=== PATIENT | male | born 1980 | race African-American/Black ===

== ENCOUNTER 2018-06-25 07:45 | Emergency (ER) | payer SELFPAY ==
[2018-06-25 07:46] VITALS: BP 164/105; PULSE 63; RESP 12; TEMP 36.6; O2SAT 99; BMI 31.4
--- NOTE | 2018-06-25 08:13 | ED.VISSUMM ---
- ER Visit Summary Date of Service: 06/25/18 Chief Complaint: [Left eye pain and swelling] History of Present Illness: The patient is a 38 M [presents the emergency department with complaint of discomfort to his left eye. Patient states that last evening he started with just some mild discomfort in the left upper eyelid. Upon awakening this morning patient noted that he had swelling of the eyelid and some drainage from the lateral aspect of the eyelid. Patient states that he has a history of stye. He denies any trauma to his eye. He denies foreign body sensation. He denies visual changes. He denies eye pain with movement of the eyes. He denies fevers.] Physical Examination: [HEENT-PERRLA, EOMI. Cranial nerves II through XII grossly intact. TMs clear. Mucous membranes moist. No adenopathy. Left eye-patient has edema of the upper lid with some faint erythema noted. There is some clear drainage noted from the lateral canthus that appears to be emanating from the upper lid. Patient has painless extraocular muscle movement. No proptosis. There is no evidence for conjunctivitis. No discrete stye noted or eyelid abscess. Cardiovascular-regular rate and rhythm without murmur or ectopy Lungs-clear to auscultation, chest wall stable without crepitus or subcu emphysema Abdomen-normoactive bowel sounds, soft, nontender, no rebound or rigidity, no peritoneal signs. Extremities-intact ?4, normal range of motion, normal pulses, atraumatic] Test Results: [None indicated] Emergency Department Course and Treatment: [Patient was started on Keflex and gentamicin ophthalmic ointment.] Treatment Plan: [Keflex and gentamicin ophthalmic ointment and referral to ophthalmology] Disposition: [Discharged home in stable condition. Patient advised to return if worsening pain, fever, swelling, or condition should worsen anyway.] Impression: [Left upper eyelid blepharitis/cellulitis] This note was generated with [employer] dictation software. It may contain incorrect words, spelling, and punctuation that were not noted in review of the chart prior to signing ED Disposition - Plan for ED Patient: Chief Complaint: Eye Problem Referrals: Care Physician,No Primary [Primary Care Provider] -
--- NOTE | 2018-06-25 08:16 | ED.DCSUM_ITS ---
- ER Visit Summary Date of Service: 06/25/18 Chief Complaint: [Left eye pain and swelling] History of Present Illness: The patient is a 38 M [presents the emergency department with complaint of discomfort to his left eye. Patient states that last evening he started with just some mild discomfort in the left upper eyelid. Upon awakening this morning patient noted that he had swelling of the eyelid and some drainage from the lateral aspect of the eyelid. Patient states that he has a history of stye. He denies any trauma to his eye. He denies foreign body sensation. He denies visual changes. He denies eye pain with movement of the eyes. He denies fevers.] Physical Examination: [HEENT-PERRLA, EOMI. Cranial nerves II through XII grossly intact. TMs clear. Mucous membranes moist. No adenopathy. Left eye- patient has edema of the upper lid with some faint erythema noted. There is some clear drainage noted from the lateral canthus that appears to be emanating from the upper lid. Patient has painless extraocular muscle movement. No proptosis. There is no evidence for conjunctivitis. No discrete stye noted or eyelid abscess. Cardiovascular-regular rate and rhythm without murmur or ectopy Lungs-clear to auscultation, chest wall stable without crepitus or subcu emphysema Abdomen-normoactive bowel sounds, soft, nontender, no rebound or rigidity, no peritoneal signs. Extremities-intact ?4, normal range of motion, normal pulses, atraumatic] Test Results: [None indicated] Emergency Department Course and Treatment: [Patient was started on Keflex and gentamicin ophthalmic ointment.] Treatment Plan: [Keflex and gentamicin ophthalmic ointment and referral to ophthalmology] Disposition: [Discharged home in stable condition. Patient advised to return if worsening pain, fever, swelling, or condition should worsen anyway.] Impression: [Left upper eyelid blepharitis/cellulitis] This note was generated with [email or web address] dictation software. It may contain incorrect words, spelling, and punctuation that were not noted in review of the chart prior to signing ED Disposition - Plan for ED Patient: Chief Complaint: Eye Problem Referrals: Care Physician,No Primary [Primary Care Provider] -
--- NOTE | 2018-06-25 08:16 | ED.DEP ---
ED Disposition - Plan for ED Patient: Chief Complaint: Eye Problem Instructions: ED Inflammation Eyelid, ED Cellulitis Barbara Orbital Prescriptions: Cephalexin [Keflex] 500 mg PO Q6 #40 cap Referrals: Care Physician,No Primary [Primary Care Provider] - Brandee Ragsdale MD [STAFF PHYSICIAN] - 3-5 Days
[2018-06-25] MEDS: Erythromycin Base 1 OPTH.TUBE 1 APPLIC OPHTHALMIC (08:36)
[2018-06-25] MEDS: Cephalexin 250 MG Capsule 500 MG PO (08:37)
== END 2018-06-25 08:43 | disposition home or self-care (01) ==
LOC: ED 08:13
PROVIDERS: Emergency Provider Emergency Medicine
DX: H01.004 Unspecified blepharitis left upper eyelid (principal); H00.034 Abscess of left upper eyelid; Z72.0 Tobacco use
CPT/HCPCS: 99282

== ENCOUNTER 2021-05-11 16:22 | Emergency (ER) | payer MEDICAID, SELFPAY ==
[2021-05-11 16:22] VITALS: BP 161/105; PULSE 71; RESP 14; TEMP 36.9; O2SAT 98; BMI 32.8
--- NOTE | 2021-05-11 16:36 | CT_ITS ---
EXAM: CT HEAD WITHOUT INTRAVENOUS CONTRAST : 1980 CLINICAL INDICATION: facial droop TECHNIQUE: Multiple axial images were obtained of the head without intravenous contrast. This CT exam was performed using one or more of the following dose reduction techniques: automated exposure control, adjustment of the mA and/or kV according to patient size, and/or use of iterative reconstruction technique. This report was created using [employer] report generation technology. COMPARISON: None. FINDINGS: BRAIN AND EXTRA-AXIAL SPACES: Unremarkable. No intra- or extra-axial hemorrhage. No evidence of acute infarct. No intracranial mass or mass effect. There is preservation of the king/white matter interface. Posterior fossa structures are unremarkable. Ventricles are appropriate for age. No hydrocephalus. Basal cisterns are patent. BONES/JOINTS: Unremarkable. No discrete lytic or blastic abnormalities. SINUSES: There is near total opacification of the left sphenoid sinus. MASTOID AIR CELLS: Unremarkable. Clear. ORBITS: Visualized globes, extraocular muscles, optic nerves and retrobulbar fat appear unremarkable. CT/Brain/Head without Contrast IMPRESSION: 1. No acute intracranial abnormality. 2. Left sphenoid sinusitis. Individualized dose optimization techniques were used for this CT. at 1656 Reported and signed by: Iglesia Rouse MD Electronically Signed: Iglesia Rouse MD at 16:55 EDT Tel , Service support ,
[2021-05-11 16:40] VITALS: PULSE 66; RESP 15; O2SAT 98
--- NOTE | 2021-05-11 17:24 | EDS_ITS ---
HPI History of Present Illness Chief Complaint: Neuro S/Sx Narrative Narrative: Patient presenting for evaluation secondary to facial weakness. Patient states that at about 3 PM today he noticed that he was having right- sided facial weakness and was having difficulty with drinking through a straw. Does state that there was some mild tingling associated with this. He denies any visual changes, or numbness or weakness of the arms or legs. No gait instability or difficulty speaking. Never had any prior similar episodes in the past. Denies any facial rashes or ear pain. Patient does have an underlying history of hypertension, he has been on lisinopril over the course of maybe like last 6 months. Patient denies any other current symptoms. Review of systems otherwise negative. [facility] Medical History Essential (primary) hypertension Palpitations Paroxysmal atrial fibrillation Home Medications amoxicillin-pot clavulanate [Augmentin] 1 tab PO BID #28 tab 05/11/21 [Rx Last Taken Unknown] lisinopril [Zestril] 10 mg PO DAILY 05/11/21 [History Last Taken Unknown] prednisone 50 mg PO DAILY #7 tab 05/11/21 [Rx Last Taken Unknown] Allergy/AdvReac Type Severity Reaction Status Date / Time No Known Allergies Allergy Verified 05/11/21 16:24 Family History Father Diabetes Social History Smoking Status: Light Smoker (<10/day) ROS [facility] ED Constitutional Constitutional ED: Denies chills or fever(s) ENT ENT ED: Denies rhinorrhea Cardiovascular Cardiovascular: Denies chest pain Respiratory/Chest Respiratory/Chest: Denies cough or dyspnea Gastrointestinal Gastrointestinal: Denies abdominal pain, diarrhea, nausea or vomiting Genitourinary Genitourinary ED: Denies dysuria or hematuria Musculoskeletal Musculoskeletal: Denies back pain Integumentary Denies rash Neurologic Neurologic: Reports weakness Psychiatric Psychiatric: Denies depression Endocrine Endocrinology: Denies fatigue Allergic/Immunologic Allergic/Immunologic ED: Denies urticaria EXAM Physical Exam Const Vital Signs: 05/11/21 16:22 05/11/21 16:40 Temperature 98.5 F Temperature Source Temporal Pulse Rate 71 66 Respiratory Rate 14 15 Blood Pressure 161/105 H Blood Pressure Mean 123 Pulse Ox 98 98 Oxygen Delivery Method Room Air Room Air Positive well nourished and well developed General Appearance ED: well developed and NAD HEENT Reports moist mucous membranes Negative for trauma or tenderness Eyes EOMs intact bilaterally Neck no lymphadenopathy, supple and no JVD Chest Wall inspection of chest normal Resp normal respiratory effort and clear to auscultation bilaterally Cardio regular rate, regular rhythm, no murmurs and peripheral pulses 2+ throughout GI normal to inspection, nondistended, normoactive bowel sounds, non-tender and no masses Palpation: soft Back/Spine normal to inspection Extremity normal to inspection General Extremety ED: Negative for tenderness Neuro oriented x3 Neuro Narrative: NIH stroke scale is 1 secondary to very mild right-sided facial droop. The right-sided facial droop does not spare the patient's forehead. Sensorium / Orientation: alert Psych mental status grossly normal Skin no rashes or lesions noted MDM MDM MDM Narrative Medical decision making narrative: Patient presented secondary to an onset of right-sided facial droop. 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 Patient reported that yesterday he had a mild headache, so I did perform CT imaging of the brain which was found to be negative except for incidental sphenoid sinusitis. Patient does not have any evidence of facial rashes or zoster currently. I believe the patient can safely be discharged. Be sent home on a course of Augmentin for sphenoid sinusitis as well as prednisone for treatment of Camara's palsy. He has follow-up with his primary care physician on Sunday, he was recommended to keep that. Radiography Diagnostic Testing: Radiology Impression Brain CT 05/11/21 16:36 IMPRESSION: 1. No acute intracranial abnormality. 2. Left sphenoid sinusitis. Individualized dose optimization techniques were used for this CT. at 1656 Reported and signed by: Iglesia Rouse MD Electronically Signed: Iglesia Rouse MD at 16:55 EDT Tel , Service support , Discharge Plan Triage Chief Complaint: Neuro S/Sx ED Provider: Dqeuan Man Dx/Rx/DC Orders Clinical Impression: Camara's palsy, Sphenoid sinusitis Instructions: Camara's Palsy, ED Sinusitis (Antibiotic Treatment) Prescriptions: New amoxicillin-pot clavulanate [Augmentin] 875-125 mg tablet 1 tab PO BID Qty: 28 RF: 0 prednisone 50 mg tablet 50 mg PO DAILY Qty: 7 RF: 0 No Action lisinopril [Zestril] 10 mg tablet 10 mg PO DAILY RF: 0 Primary Care Provider: Jeffery Fonseca Referrals: Jeffery Fonseca MD [Primary Care Provider] - 05/13/21
[2021-05-11 17:37] VITALS: BP 163/95; PULSE 59; RESP 20; O2SAT 100
[2021-05-11 17:40] VITALS: BMI 11.3
== END 2021-05-11 17:40 | disposition home or self-care (01) ==
LOC: ED 16:52
PROVIDERS: Emergency Provider Emergency Medicine; PCP Family Medicine
DX: G51.0 Bell's palsy (principal); J32.3 Chronic sphenoidal sinusitis; I10 Essential (primary) hypertension; F17.200 Nicotine dependence, unspecified, uncomplicated; Z79.899 Other long term (current) drug therapy
CPT/HCPCS: 70450; 99282

== ENCOUNTER 2022-06-16 19:19 | Emergency (ER) | payer MEDICAID, SELFPAY ==
[2022-06-16 19:20] VITALS: BP 141/83; PULSE 77; RESP 16; TEMP 36.6; O2SAT 99; BMI 31.8
--- NOTE | 2022-06-16 19:34 | EDS_ITS ---
HPI History of Present Illness Chief Complaint: Nausea/Vomiting Detail of Chief Complaint: Nausea and vomiting x2 this afternoon Informant: patient and spouse/S.O. Onset/Context/Timing Onset: Today and Days Context: Sudden Onset Timing: Intermittent Quality: Nausea and vomiting Location: GI Current Severity: Mild Maximum Severity: Moderate Worsened by: gusling water Relieved by: Nothing Associated Symptoms Associated Symptoms: Dry mouth Narrative Narrative: Here forPatient is a 42-year-old male with history of hypertension on lisinopril who presents because of nausea and vomiting x2. He called his and stated he did not feel well. She instructed him not to drive. He drove home. He then developed cramps in his calves. She applied Aspercreme with no benefit. He presents now because my thinks I am dehydrated . He denies fever, chills night sweats. He denies headache. He denies ocular, visual auditory symptoms. He denies cardiac or respiratory symptoms. He denies diarrhea. He denies hematemesis. He denies urinary symptoms. Prior similar symptoms: No Recent Illness/Hospitalization: No PFSH [facility] Medical History Camara's palsy Essential (primary) hypertension Palpitations Paroxysmal atrial fibrillation Home Medications lisinopril 10 mg tablet (Zestril) 20 mg PO DAILY 05/11/21 [History Last Taken Unknown] meloxicam 7.5 mg tablet 7.5 mg PO DAILY 06/16/22 [History Last Taken Unknown] Allergy/AdvReac Type Severity Reaction Status Date / Time No Known Allergies Allergy Verified 06/16/22 19:24 Family History Father Diabetes Surgical History no surgical history no surgical history Social History (Updated 06/16/22 @ 19:[address] Thomas Bach MD) household members: spouse Smoking Status: Light Smoker (<10/day) alcohol intake: current alcohol intake frequency: a few times a week substance use type: marijuana ROS ROS ED Constitutional Constitutional ED: Denies chills, fever(s), subjective, sweats or weight loss Eyes Eyes: Denies blurry vision, change in vision or diplopia ENT ENT ED: Denies ear pain, rhinorrhea or sore throat Cardiovascular Cardiovascular: Denies chest pain, orthopnea, palpitations, paroxysmal nocturnal dyspnea or racing heartbeat Respiratory/Chest Respiratory/Chest: Denies cough, dyspnea, dyspnea on exertion, orthopnea, paroxysmal nocturnal dyspnea or sputum Gastrointestinal Gastrointestinal: Reports nausea and vomiting; Denies abdominal pain, constipation, diarrhea or melena Genitourinary Genitourinary ED: Denies dysuria, hematuria or urinary frequency Musculoskeletal Musculoskeletal: Denies arthralgias, back pain, myalgias or neck pain Integumentary Denies Abrasions or rash Neurologic Neurologic: Denies headache(s) or paresthesias Hematologic/Lymphatic Hematologic/Lymphatic: Denies systems reviewed and no addt'l complaints, except as documented, easy bleeding or easy bruising EXAM Physical Exam Const Vital Signs: 06/16/22 19:20 Temperature 98 F Temperature Source Temporal Pulse Rate 77 Respiratory Rate 16 Blood Pressure 141/83 H Blood Pressure Mean 102 Pulse Ox 99 Oxygen Delivery Method Room Air Positive well nourished, well developed and obese General Appearance ED: well developed; Negative for cyanotic, diaphoretic, NAD or pallor Nutritional Appearance: obese HEENT Reports dry mucous membranes HEENT Narrative: Head is atraumatic normocephalic. Ears normal. TMs normal. Nares patent. Uvula midline. No deviation tongue or protrusion. Posterior Prantal erythema or exudate. Mouth ED: Yes dry mucous membranes Mouth: dry mucous membranes Eyes PERRL and EOMs intact bilaterally General Eye ED: Negative for pale conjunctiva or scleral icterus Neck no lymphadenopathy, supple and no JVD Chest Wall inspection of chest normal and palpation of chest normal Resp normal respiratory effort and clear to auscultation bilaterally Cardio regular rate, regular rhythm, S1 normal heart sound, S2 normal heart sound and no murmurs GI normal to inspection, nondistended, normoactive bowel sounds, non-tender, non- distended and no masses; Negative for hepatosplenomegaly Back/Spine no CVA tenderness Extremity normal to inspection General Extremety ED: Negative for edema or tenderness General Extremity: Negative for edema Neuro oriented x3, CN's II-XII intact bilaterally and no sensory deficits noted Sensorium / Orientation: alert Motor Exam: strength 5/5 throughout Psych mental status grossly normal Skin no rashes or lesions noted, no wounds and skin turgor normal General Skin Exam: Negative for jaundice or pallor MDM MDM MDM Narrative Medical decision making narrative: Patient with nausea vomiting. Clinically dehydrated. Since he only vomited twice per literature laboratory studies are not indicated. IV was already established prior to me seeing the patient. Will administer 1 L of normal saline and p.o. challenge. Presently patient complains of no nausea. Patient passed p.o. challenge. He was reassessed at 2104. Discharge Plan Triage Chief Complaint: Nausea/Vomiting ED Provider: Thomas Bach Dx/Rx/DC Orders Clinical Impression: Nausea & vomiting, Dehydration, mild Instructions: ED Vomiting (Adult) Prescriptions: No Action lisinopril [Zestril] 10 mg tablet 20 mg PO DAILY meloxicam 7.5 mg tablet 7.5 mg PO DAILY Primary Care Provider: Jeffery Fonseca Referrals: Jeffery Fonseca MD [Primary Care Provider] - As Needed Disposition Disposition: Home, Self Care
[2022-06-16] MEDS: 0.9% Normal Saline 1,000 ML 1000 ML IV (19:38)
== END 2022-06-16 21:14 | disposition home or self-care (01) ==
PROVIDERS: Emergency Provider Emergency Medicine; PCP Family Medicine; Visit Provider Emergency Medicine
DX: R11.2 Nausea with vomiting, unspecified (principal); E86.0 Dehydration; F12.90 Cannabis use, unspecified, uncomplicated; F17.200 Nicotine dependence, unspecified, uncomplicated; I10 Essential (primary) hypertension; Z79.899 Other long term (current) drug therapy; E66.9 Obesity, unspecified
CPT/HCPCS: 99285